=== PATIENT | male | born 1965 | race Caucasian/White ===

== ENCOUNTER 2016-12-27 12:13 | Observation (INO) | payer OTHER ==
--- NOTE | 2016-12-27 14:12 | ER Document Report ---
ED Medical Screen (RME) - General Mode of Arrival: Ambulatory TRAVEL OUTSIDE OF THE [place] IN LAST 30 DAYS: No <IBRAHIMA MALIK - Last Filed: 12/27/16 15:01> <SRIDHAR BALTAZAR - Last Filed: 01/06/17 11:10> - General Chief Complaint: Chest Pain Stated Complaint: CHEST PAIN Time Seen by Provider: 12/27/16 14:03 Notes: Presents today with complaints of chest pain beginning at noon today. Patient states along with this chest pain he began having a headache, confusion, and questionable syncope. Patient states he had a similar episode one week ago with shortness of breath and syncope but was never evaluated medically for this. Patient states with this episode today he developed diaphoresis with the pain radiating in to his neck. Patient denies any nausea, vomiting, diarrhea, or stress test/cardiac catheterization in the past. Patient states he has noticed that he has had mild foot swelling recently. Patient denies nausea, vomiting, diarrhea, or cardiac stress test/cardiac catherization. (IBRAHIMA MALIK) - Related Data Allergies/Adverse Reactions: No Known Allergies Allergy (Verified 12/27/16 12:21) Past Medical History Renal/ Medical History: Denies: Hx Peritoneal Dialysis <IBRAHIMA MALIK - Last Filed: 12/27/16 15:01> Course <IBRAHIMA MALIK - Last Filed: 12/27/16 15:01> - Laboratory Result Diagrams: 12/27/16 14:12 12/27/16 14:12 <SRIDHAR BALTAZAR - Last Filed: 01/06/17 11:10> - Re-evaluation Re-evalutation: 12/27/16 14:13 Patient presents emergency room with chief complaint of chest pain headache and syncope. Patient is a 51-year-old male who does not have a primary care physician and denies any known cardiac history of diabetes high blood pressure or heart problems. He is on no medications has no idea what his cholesterol level is and has never had a stress test or heart catheterization. He said 1 week ago when he was at his computer at work he had acute onset of shortness of breath and passed out at work. He said he woke up for a little funny and then went back to work and did not seek any follow-up treatment for that today he was at [employer] across the street and acute onset of chest pain shortness of breath and again syncopized. This chest pain lasted about 10 minutes and is gone currently he drove himself to the emergency department he states that when he asked him his name and birthdate out thought he had trouble remembering that. He denies any blurred vision double vision weakness on one side of body versus the other and drove and ambulated himself here. He said with this episode he had a severe headache which is slightly improved right now no known family history of aneurysm that he felt short of breath with it became diaphoretic and it radiated into his neck. He denies any nausea vomiting or diarrhea. At this time am ordering a stat CT of his head CT PE study IV placement and laboratory evaluation I called the charge nurse and the back and asked for immediate bed placement for further assessment management. 12/27/16 14:16 I personally performed the services described in the documentation, reviewed and edited the documentation which was dictated to my scribe in my presence, and it accurately records my words and actions. (SRIDHAR BALTAZAR) - Vital Signs Vital signs: Temp Pulse Resp BP Pulse Ox 98 F 78 18 130/84 H 95 12/28/16 10:27 12/28/16 10:27 12/28/16 10:27 12/28/16 10:27 12/28/16 10:27 - Laboratory Laboratory results interpreted by me: 12/27/16 12/27/16 14:12 15:10 Glucose 114 H Total Bilirubin 1.4 H Direct Bilirubin 0.5 H AST 60 H ALT 88 H Urine Blood SMALL H - EKG Interpretation by Me Additional EKG results interpreted by me: 12/27/16 14:15 ekg interpreted by myself revealing sinus rhythm at 95 bpm left axis deviation no acute ST segment elevation or depression (SRIDHAR BALTAZAR) Doctor's Discharge <IBRAHIMA MALIK - Last Filed: 12/27/16 15:01> <SRIDHAR BALTAZAR - Last Filed: 01/06/17 11:10> - Discharge Clinical Impression: Syncope and collapse Chest pain Qualifiers: Chest pain type: unspecified Qualified Code(s): R07.9 - Chest pain, unspecified Headache Qualifiers: Headache type: unspecified Headache chronicity pattern: unspecified pattern Intractability: not intractable Qualified Code(s): R51 - Headache Condition: Stable Disposition: ADMITTED INPATIENT Scribe Documentation - Scribe Written by Scribe:: Liliana Savage, 12/27/2016 1521 acting as scribe for :: Donell <IBRAHIMA MALIK - Last Filed: 12/27/16 15:01>
--- NOTE | 2016-12-27 14:12 | ER Document Report ---
ED Cardiac - General Chief Complaint: Chest Pain Stated Complaint: CHEST PAIN Time Seen by Provider: 12/27/16 14:03 TRAVEL OUTSIDE OF THE [place] IN LAST 30 DAYS: No - Related Data Allergies/Adverse Reactions: No Known Allergies Allergy (Verified 12/27/16 12:21) Past Medical History - Social History Patient has suicidal ideation: No Patient has homicidal ideation: No Renal/ Medical History: Denies: Hx Peritoneal Dialysis Physical Exam - Vital signs Vitals: Temp Pulse Resp BP Pulse Ox 97.6 F 99 22 H 131/81 H 95 12/27/16 12:22 12/27/16 12:22 12/27/16 12:22 12/27/16 12:22 12/27/16 12:22 Course - Vital Signs Vital signs: Temp Pulse Resp BP Pulse Ox 97.6 F 99 22 H 131/81 H 95 12/27/16 12:22 12/27/16 12:22 12/27/16 12:22 12/27/16 12:22 12/27/16 12:22
--- NOTE | 2016-12-27 14:41 | ER Document Report ---
ED General - General Chief Complaint: Chest Pain Stated Complaint: CHEST PAIN Time Seen by Provider: 12/27/16 14:03 Mode of Arrival: Ambulatory Information source: Patient TRAVEL OUTSIDE OF THE [place] IN LAST 30 DAYS: No - HPI Notes: Patient is a 51-year-old white male presents to emergency department with report of syncopal event that occurred 1 week ago when he was laughing sitting at the computer with a colleague had a sensation where he felt lightheaded and then passed out witnessed for just a few seconds and fell forward into the keyboard, then awoke. The patient states she was diaphoretic and had a headache that lasted 30 minutes after the event. There is no observed seizure activity. He had no chest pain associated with that event. He denied any palpitations. Patient reports that today he was in his car and noticed chest pain that lasted approximately 8-9 minutes with a sensation of feeling lightheaded and then had another syncopal event where he was alone, is unsure how long that event lasted but he kept his foot upon the break and the car did not move. This event was also followed by a headache that lasted 30 minutes and resolved. Both events, there was no incontinence or tongue biting. Patient admits to being under significant amount of stress recently due to a new job where he is having to work long hours. He admits to increased caffeine use 1 coli or Mountain Dew daily with 1 monster energy drink and two 5 hour energy per day on average. He drinks rarely perhaps once every 2 weeks, not recently. Patient does have a smoking history. He admits to a 30 pound weight gain in the last 4 months related to the job stress and lack of exercise. Family history significant for cardiac disease. Father at age 64 after having multiple bypass surgeries and MIs. Patient sister of cardiac disease at age 53. Patient has had no previous evaluation of his heart or visit with a regular practitioner. He is on no medications. He has had no cardiac stress test done previously. Patient drove himself to the emergency department after the event today and he was somewhat disoriented having trouble remembering details. He did report brief blurred vision associated with the event, but denied any one- sided numbness or weakness. - Related Data Allergies/Adverse Reactions: No Known Allergies Allergy (Verified 12/27/16 12:21) Past Medical History - General Information source: Patient - Social History Smoking Status: Current Every Day Smoker Cigarette use (# per day): Yes Frequency of alcohol use: Rare Drug Abuse: None Lives with: Alone Family History: CAD Patient has suicidal ideation: No Patient has homicidal ideation: No Renal/ Medical History: Denies: Hx Peritoneal Dialysis Review of Systems - Review of Systems Notes: REVIEW OF SYSTEMS: CONSTITUTIONAL : Denies fever, chills, or sweats. Denies recent illness. EENT: Denies eye, ear, throat, or mouth pain or symptoms. Denies nasal or sinus congestion or discharge. Denies throat, tongue, or mouth swelling or difficulty swallowing. CARDIOVASCULAR: Denies palpitations or racing or irregular heart beat. Denies ankle edema. RESPIRATORY: Denies cough, cold, or chest congestion. Denies shortness of breath, difficulty breathing, or wheezing. GASTROINTESTINAL: Denies abdominal pain or distention. Denies nausea, vomiting , or diarrhea. Denies blood in vomitus, stools, or per rectum. Denies black, tarry stools. Denies constipation. GENITOURINARY: Denies difficulty urinating, painful urination, burning, frequency, blood in urine, or discharge. MUSCULOSKELETAL: Denies back or neck pain or stiffness. Denies joint pain or swelling. SKIN: Denies rash, lesions or sores. HEMATOLOGIC : Denies easy bruising or bleeding. LYMPHATIC: Denies swollen, enlarged glands. NEUROLOGICAL: Denies weakness or paralysis or loss of use of either side. Denies problems with gait or speech. Denies current numbness, or tingling. Denies seizures. PSYCHIATRIC: Denies depression, suicidal ideation, or homicidal ideation. ALL OTHER SYSTEMS REVIEWED AND NEGATIVE. Dictation was performed using [employer] voice recognition software Physical Exam - Vital signs Vitals: Temp Pulse Resp BP Pulse Ox 97.6 F 99 22 H 131/81 H 95 12/27/16 12:22 12/27/16 12:22 12/27/16 12:22 12/27/16 12:22 12/27/16 12:22 - Notes Notes: Male exam PHYSICAL EXAMINATION: GENERAL: Well-appearing, well-nourished and in no acute distress. HEAD: Atraumatic, normocephalic. EYES: Pupils equal round and reactive to light, extraocular movements intact, sclera anicteric, conjunctiva are normal. ENT: Nares patent, oropharynx clear without exudates. Moist mucous membranes. NECK: Normal range of motion, supple without lymphadenopathy. No carotid bruits. No cerebellar ataxia. Normal reflexes. LUNGS: Breath sounds clear to auscultation bilaterally and equal. No wheezes rales or rhonchi. HEART: Regular rate and rhythm without murmurs ABDOMEN: Soft, nontender, nondistended abdomen. No guarding, no rebound. No masses appreciated. Musculoskeletal: Normal range of motion, no pitting or edema. No cyanosis. NEUROLOGICAL: Cranial nerves grossly intact. Normal speech, normal gait. Normal sensory, motor exams. Normal DTRs. Alert oriented x 3. PSYCH: Normal mood, normal affect. SKIN: Warm, Dry, normal turgor, no rashes or lesions noted. Course - Re-evaluation Re-evalutation: 12/27/16 19:36 Patient remained neurologically intact, and vital signs remained stable. CT scan of the chest and head were both negative. There is no evidence for pulmonary embolus, congestive heart failure, acute intracranial hemorrhage or obvious CVA. No anemia or hypoglycemia or electrolyte imbalance. One questions adverse effect of the patient's high caffeine use and stress and cannot exclude possible cardiac arrhythmia. Likewise cannot exclude vascular process and TIA. Also consider cardiac ischemic event with chest pain. Also question stress reaction. Also consider vasovagal reaction related to laughing and reaching back into his back pocket to remove the wallet prior to the event today. This is however somewhat unlikely. discussed with the patient and he was in agreement with further evaluation and care. Discussed with Dr. Irene who agreed to see the patient. Repeat troponin is pending on the patient to further rule out cardiac etiology related to the patient's chest pain. 12/27/16 20:05 - Vital Signs Vital signs: Temp Pulse Resp BP Pulse Ox 97.6 F 99 18 131/81 H 93 12/27/16 12:22 12/27/16 12:22 12/27/16 16:00 12/27/16 12:22 12/27/16 16:00 - Laboratory Result Diagrams: 12/27/16 14:12 12/27/16 14:12 Laboratory results interpreted by me: 12/27/16 12/27/16 14:12 15:10 Glucose 114 H Total Bilirubin 1.4 H Direct Bilirubin 0.5 H AST 60 H ALT 88 H Urine Blood SMALL H - EKG Interpretation by Me EKG shows normal: Sinus rhythm Additional EKG results interpreted by me: 12/27/16 15:12 EKG as interpreted by me showed Normal sinus rhythm heart rate of 95. There is no gross evidence for acute NM or ischemia identified. There is no old EKG available for comparison. 12/27/16 15:14 Critical Care Note - Critical Care Note Total time excluding time spent on procedures (mins): 46 Discharge - Discharge Clinical Impression: Syncope and collapse Chest pain Qualifiers: Chest pain type: unspecified Qualified Code(s): R07.9 - Chest pain, unspecified Headache Qualifiers: Headache type: unspecified Headache chronicity pattern: acute headache Intractability: not intractable Qualified Code(s): R51 - Headache Condition: Stable Disposition: ADMITTED INPATIENT Unit Admitted: [facility]
[2016-12-27 14:55] LABS: ABSOLUTE BASOPHILS # (AUTO) 0.1 10^3/uL (0.0-0.2); ABSOLUTE EOSINOPHILS # (AUTO) 0.3 10^3/uL (0.0-0.6); ABSOLUTE LYMPHOCYTES (AUTO) 3.3 10^3/uL (0.5-4.7); ABSOLUTE MONOCYTES (AUTO) 0.8 10^3/uL (0.1-1.4); ABSOLUTE NEUT (AUTO) 5.3 10^3/uL (1.7-8.2); BASOPHILS % (AUTO) 0.7 % (0-2); EOSINOPHILS % (AUTO) 3.5 % (0-6); HEMOGLOBIN 16.5 g/dL (13.5-17.0); HGB HCT DIFFERENCE 1.5; LYMPHOCYTES % (AUTO) 33.5 % (13-45); MEAN CORPUSCULAR HEMOGLOBIN 31.5 pg (27.0-33.4); MEAN CORPUSCULAR HGB CONC 34.3 g/dL (32.0-36.0); MEAN CORPUSCULAR VOLUME 92 fl (80-97); MONOCYTES % (AUTO) 8.5 % (3-13); RED BLOOD COUNT 5.23 10^6/uL (4.35-5.55); RED CELL DISTRIBUTION WIDTH 12.8 % (11.5-14.0); SEGMENTED NEUTROPHILS % (AUTO) 53.8 % (42-78); WHITE BLOOD COUNT 9.8 10^3/uL (4.0-10.5)
[2016-12-27 15:41] LABS: APPEARANCE,URINE CLEAR; BILIRUBIN,URINE NEGATIVE (NEGATIVE); GLUCOSE, URINE NEGATIVE (NEGATIVE); KETONES,URINE NEGATIVE (NEGATIVE); LEUKOCYTE ESTERASE,URINE NEGATIVE (NEGATIVE); NITRITE,URINE NEGATIVE (NEGATIVE); PROTEIN,URINE NEGATIVE (NEGATIVE); URINE SPECIFIC GRAVITY 1.025; UROBILINOGEN,URINE NEGATIVE mg/dL (<2.0)
[2016-12-27 15:54] LABS: URINE BARBITURATES SCREEN NEGATIVE; URINE METHADONE SCREEN NEGATIVE; URINE OPIATES LOW NEGATIVE; URINE PHENCYCLIDINE SCREEN NEGATIVE
[2016-12-27 16:32] LABS: ALANINE AMINOTRANSFERASE 88 U/L (21-72); ALBUMIN 4.4 g/dL (3.5-5.0); ALKALINE PHOSPHATASE 79 U/L (38-126); ANION GAP 17 (5-19); ASPARTATE AMINO TRANSFERASE 60 U/L (17-59); BILIRUBIN,DIRECT 0.5 mg/dL (0.0-0.4); BILIRUBIN,TOTAL 1.4 mg/dL (0.2-1.3); BLOOD UREA NITROGEN 17 mg/dL (7-20); CARBON DIOXIDE 23 mmol/L (22-30); CHLORIDE 103 mmol/L (98-107); CREATININE RESULT 0.98 mg/dL (0.52-1.25); GLUCOSE 114 mg/dL (75-110); POTASSIUM 4.4 mmol/L (3.6-5.0); TOTAL PROTEIN 7.4 g/dL (6.3-8.2)
[2016-12-27 16:44] LABS: CREATINE KINASE MB 2.49 ng/mL (<4.55)
[2016-12-27 16:47] LABS: TROPONIN I < 0.012 ng/mL
[2016-12-27 17:53] LABS: THYROID STIMULATING HORMONE 1.92 uIU/mL (0.47-4.68)
[2016-12-27] MEDS ORDERED: ACETAMINOPHEN 325 MG TABLET PO PRN (23:24)
[2016-12-27] MEDS ORDERED: NICOTINE 14 MG/24 HR PATCH.TD24 TD PRN (23:24)
[2016-12-27] MEDS ORDERED: MAG HYDROX/AL HYDROX/SIMETH SUSP 30 ML UDCUP PO PRN (23:25)
--- NOTE | 2016-12-27 23:57 | PDOC H&P ---
History of Present Illness Admission Date/PCP: 12/27/16 21:13 PCP None Patient complains of: chest pain, syncope History of Present Illness: ANISA BEAN is a 51 year old morbidly obese male, half pack a day smoker, admittedly under significant stress in his new job, significant caffeine user, with underlying mild depression, without suicidal or homicidal ideation, mild occasional heartburn, and with a positive family history of coronary artery disease in the person of his father, who presents to the emergency room for evaluation of above complaints. Patient has been discussed with emergency room physician who evaluated the patient. One week ago, when sitting at his computer, laughing not overly vigorously with a colleague, developed a lightheaded sensation and then had a witnessed several second syncopal episode, waking up with his head on the keyboard. No observed seizure activity. No incontinence or tongue biting. No palpitations or chest pain. Did develop mild diaphoresis, along with a 30 minute headache post-event. Today, while sitting in his car, he developed substernal chest discomfort lasting approximately 8-9 minutes, with spontaneous resolution. Associated sensation of lightheadedness. He put the foot on the brake of the car and had another syncopal episode. Uncertain the exact length of today's event, but the car did not move. This was also followed by approximately a 30 minute episode of headache that spontaneously resolved. Again, no tongue biting or incontinence. Patient drove himself to the emergency department. [place] somewhat disoriented, having trouble remembering details, along with brief blurred vision associated with the above second event, but denies any lateralizing numbness or weakness. No history of seizure stroke TIA or mini stroke. Half pack a day smoker. Alcohol intake about once every 2 weeks, but reportedly not much even then. Marijuana use. 1 carbonated beverage daily containing caffeine. 1 monster energy drink per day, along with 2 5 hour energy drinks also. Occasional [id number] Advil or ibuprofen, but none for the past 2 weeks. 30 pound weight gain in the last 4 months due to job stress and lack of exercise. No underlying personal cardiac history. Distant history of a negative workup for "flight tests." No previous myocardial infarction, problems with hypertension, or congestive heart failure. No history of pulmonary embolus or DVT. No recent long trip with prolonged inactivity, or unusual lower extremity swelling or tenderness. Currently resting quietly. Denies pain. Hungry. Wants a cigarette. Laboratory results are listed in [employer] and are reviewed. X-ray summary results are listed below, with full report(s) reviewed. . EKG reviewed. No prior EKG available for comparison. Social history/personal habits: . One child, 15-year-old daughter. 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 Personal habits as noted above. No known drug allergies. Home medications none REVIEW OF SYSTEMS: Constitutional: No fever or chills. Eyes: Wears glasses. ENT: No swallowing problems or complaints. No hearing difficulty. Pulmonary: No current complaints. Cardiovascular: See history and present illness. Gastrointestinal: No current complaints, including nausea or vomiting. Skin: No current complaints, including rashes. Hematologic: No easy bruising. Neurologic: No current complaints, including numbness or tingling. Musculoskeletal: Occasional mild back discomfort, but no specific diagnosis of arthritis; states he has been told a number of years ago that x-rays of the spine revealed "arthritic changes." Psychiatric: Mild depression; denies suicidal or homicidal ideation. Endocrine: No current complaints, including polyuria. Genitourinary: No current complaints, including dysuria. PHYSICAL EXAMINATION: 6 feet tall. 136.1 kg. BMI 40.7 kg/m. Blood pressure 117/78.Pulse of 80. Respirations are 23 and unlabored. 95% saturation on room air. Temperature 97.6. Obese but also somewhat stocky otherwise well-developed male appearing perhaps a bit younger than his stated age. Pleasant awake alert and cooperative. Somewhat anxious gentleman, although no seda agitation. Skin is warm and dry. No grossly obvious evidence of rash in areas of skin examined. No subcutaneous nodules palpated. ENT: Hearing grossly normal to normal conversation. Tongue midline on protrusion pink and slightly tacky. Eyes: No scleral icterus. Pupils equal and reactive to light at 4 mm. [place] conjunctivae. Neck is supple and nontender to gentle active range of motion and palpation. Midline trachea. No palpable thyroid nodule mass enlargement or tenderness. Lymphatic: No palpable cervical or clavicular nodes. Neck and lymphatic exams limited by patient body habitus. Psychiatric: Reasonable insight into acute and chronic medical issues. Oriented to time location and why here. Lungs: Auscultation reveals clear and equal breath sounds bilaterally. No use of accessory respiratory muscles. Cardiovascular: Heart regular rate and rhythm, without gallop murmur or rub. No carotid or abdominal aortic bruits. No ankle edema. Abdomen:soft somewhat obese nontender with positive bowel sounds. Unable to adequately evaluate abdomen for masses or organomegaly due to body habitus. Compression of neither his upper abdomen or sternum reproduces his previously noted chest discomfort Extremities: Ankles and calves are warm and dry. No calf tenderness to compression. No grossly obvious visual evidence of calf swelling. Gentle manipulation of lower extremities fails to reveal any obvious evidence of injury or instability to knees hips or ankles. Neurologic: Moves all 4 extremities grossly normally. Moves from a standing to a seated to a supine position without undue difficulty. Patellar reflexes absent. Dorsiflexion and plantarflexion of feet 5 / 5 and symmetric. Past Medical History Cardiac Medical History: Denies: Congestive Heart Failure, DVT, Myocardial Infarction, Hyperlipidema, Hypertension, Pulmonary Embolism Pulmonary Medical History: Denies: Asthma, Chronic Obstructive Pulmonary Disease (COPD), Sleep Apnea EENT Medical History: Reports: Eyes - Reading glasses Denies: Ears, Throat Neurological Medical History: Denies: Hemorrhagic CVA, Ischemic CVA, Seizures Endocrine Medical History: Denies: Diabetes Mellitus Type 1, Diabetes Mellitus Type 2, Hyperthyroidism, Hypothyroidism Renal/ Medical History: Reports: None GI Medical History: Reports: Other - Occasional heartburn. Denies: Cirrhosis, Hepatitis, Peptic Ulcer Disease Musculoskeltal Medical History: Reports: Arthritis - Back x-rays revealing "arthritic changes" Skin Medical History: Reports: None Psychiatric Medical History: Reports: Depression, Substance Abuse - Marijuana and fairly significant caffeine use., Tobacco Dependency Denies: Alcohol Dependency, General Anxiety Disorder Hematology: Reports: None Infectious Medical History: Denies: Clostridium Difficile, Hepatitis B, Hepatitis C, Methicillin- Resistant Staph Aureus Past Surgical History Past Surgical History: Reports: Other - Percutaneous drainage of diverticular abscess Social History Information Source: Patient, Emergency Med Personnel, [facility] Records Lives with: Alone Smoking Status: Current Every Day Smoker Frequency of Alcohol Use: Occasional Drugs: Marijuana, Other - Significant caffeine use. - Advance Directive Resuscitation Status: Full Code Surrogate healthcare decision maker:: Uncertain Family History Family History: CAD Parental Family History Reviewed: Yes - Mother after stroke. Father of heart trouble. Children Family History Reviewed: Yes - 15-year-old daughter healthy. Sibling(s) Family History Reviewed.: Yes - 2 sisters with cancer, one secondary to same Medication/Allergy Home Medications: Aspirin [Ecotrin 81 mg EC Tablet] 81 mg PO DAILY #30 tabec 12/28/16 Atorvastatin Calcium [Lipitor 40 mg Tablet] 40 mg PO QHS #30 tablet 12/28/16 Allergies/Adverse Reactions: No Known Allergies Allergy (Verified 12/27/16 12:21) Physical Exam Vital Signs: Temp Pulse Resp BP Pulse Ox 97.6 F 99 23 H 117/78 95 12/27/16 12:22 12/27/16 12:22 12/27/16 22:01 12/27/16 22:01 12/27/16 22:01 Results Impressions: Chest/Abdomen CTA 12/27/16 14:13 IMPRESSION: 1. There is no evidence of pulmonary emboli. 2. There is fatty infiltration of the liver. Head CT 12/27/16 14:13 IMPRESSION: 1. Normal-appearing brain. 2. Maxillary and ethmoid sinusitis. Assessment & Plan - Diagnosis (1) Caffeine dependence Is this a current diagnosis for this admission?: Yes (2) Chest pain Qualifiers: Chest pain type: unspecified Qualified Code(s): R07.9 - Chest pain, unspecified Is this a current diagnosis for this admission?: YesPlan: Patient will be placed in observation bed under chest pain protocol. Patient understands to notify staff should chest pain recur. Serial troponin. Repeat EKG. lipid panel. I have strongly encouraged patient not to get out of bed without notifying staff , to avoid a fall with injury. Knee high SCDs for DVT prophylaxis, Along with subcutaneous Lovenox. Impression and plans were discussed with patient, who concurs. Time spent in evaluation and management of patient: 62 minutes. (3) Elevated LFTs Is this a current diagnosis for this admission?: YesPlan: Denies any known underlying biliary disease. Fatty liver changes on CT scan. Repeat chemistry. (4) Marijuana use Is this a current diagnosis for this admission?: Yes (5) Morbid obesity Qualifiers: Obesity type: unspecified obesity type Qualified Code(s): E66.01 - Morbid (severe) obesity due to excess calories Is this a current diagnosis for this admission?: YesPlan: Dietary consult. (6) Stress at work Is this a current diagnosis for this admission?: Yes (7) Syncope and collapse Is this a current diagnosis for this admission?: YesPlan: Orthostatic vital signs every 4 hours while awake, starting in morning. Strongly encouraged patient not to get out of bed without notifying staff to avoid a fall with injury. (8) Family history of early CAD Is this a current diagnosis for this admission?: Yes (9) Tobacco dependency Is this a current diagnosis for this admission?: YesPlan: As needed nicotine patch.
[2016-12-28 00:09] LABS: ADD ON TESTING BLD IN LAB ACKNOWLEDGE
[2016-12-28 00:21] LABS: ALCOHOL < 10 mg/dL (NONE DETECTED)
[2016-12-28] MEDS ORDERED: CALCIUM GLUCONATE 1000 MG/10 ML INJ IV ONE (00:47)
[2016-12-28] MEDS ORDERED: ASPIRIN 81 MG TABLET, ENT COATED PO ONE (01:00)
[2016-12-28 07:05] LABS: ALANINE AMINOTRANSFERASE 87 U/L (21-72); ALKALINE PHOSPHATASE 78 U/L (38-126); ASPARTATE AMINO TRANSFERASE 59 U/L (17-59); BILIRUBIN,DIRECT 0.5 mg/dL (0.0-0.4); BILIRUBIN,TOTAL 1.1 mg/dL (0.2-1.3); CHOLESTEROL 172.29 mg/dL (0-200); Direct HDL 28 mg/dL (>40); TOTAL PROTEIN 6.9 g/dL (6.3-8.2); TRIGLYCERIDES 292 mg/dL (<150)
[2016-12-28 07:17] LABS: DIRECT LDL 105 mg/dL (<100)
[2016-12-28 07:24] LABS: VLDL CHOLESTEROL 58.4 mg/dL (10-31)
[2016-12-28] MEDS ORDERED: ASPIRIN 81 MG TABLET, ENT COATED PO SCH (10:00)
[2016-12-28] MEDS ORDERED: ENOXAPARIN SODIUM INJ 40 MG/0.4 ML DISP.SYRIN SUBCUT SCH (10:00)
[2016-12-28 10:33] VITALS: BP 130/84
--- NOTE | 2016-12-28 13:25 | PDOC DISCHARGE SUMMARY ---
General - Admit/Disc Date/PCP Admission Date/Primary Care Provider: 12/27/16 23:25 Will be referred to the primary care provider transportation engineering technician the day the patient was admitted Discharge Date: 12/28/16 - Discharge Diagnosis (1) Chest pain Is this a current diagnosis for this admission?: Yes (2) Pre-syncope Is this a current diagnosis for this admission?: Yes (3) Caffeine dependence Is this a current diagnosis for this admission?: Yes (4) Elevated LFTs Is this a current diagnosis for this admission?: Yes (5) Marijuana use Is this a current diagnosis for this admission?: Yes (6) Morbid obesity Is this a current diagnosis for this admission?: Yes (7) Stress at work Is this a current diagnosis for this admission?: Yes (8) Family history of early CAD Is this a current diagnosis for this admission?: Yes (9) Tobacco dependency Is this a current diagnosis for this admission?: Yes - Additional Information Resuscitation Status: Full Code Discharge Diet: As Tolerated, Cardiac Discharge Activity: Activity As Tolerated - Patient was provided a note to return to work on Friday, Balance Activity w/Rest, Other Home Medications: Aspirin [Ecotrin 81 mg EC Tablet] 81 mg PO DAILY #30 tabec 12/28/16 Atorvastatin Calcium [Lipitor 40 mg Tablet] 40 mg PO QHS #30 tablet 12/28/16 History of Present Illness Patient complains of: Almost passing out, chest pain History of Present Illness: ANISA BEAN is a 51 year old morbidly obese male, half pack a day smoker, admittedly under significant stress in his new job, significant caffeine user, with underlying mild depression, without suicidal or homicidal ideation, mild occasional heartburn, and with a positive family history of coronary artery disease and the person of his father, who presents to the emergency room for evaluation of above complaints. One week ago, when sitting at his computer, laughing not overly vigorously with a colleague, developed a lightheaded sensation and then had a witnessed several second syncopal episode, waking up with his head on the keyboard. No observed seizure activity. No incontinence or tongue biting. No palpitations or chest pain. Did develop mild diaphoresis, along with a 30 minute headache postevent. Denies loss of consciousness. Today, while sitting in his car at a fast food drive-through, he developed substernal chest discomfort lasting approximately 8-9 minutes, with spontaneous resolution. Associated sensation of lightheadedness. He put the foot on the brake of the car and had another syncopal episode. Uncertain the exact length of today's event, but the car did not move. This was also followed by approximately a 30 minute episode of headache that spontaneously resolved. Patient drove himself to the emergency department. Kane somewhat disoriented, having trouble remembering details, along with brief blurred vision associated with the above second event, but denies any lateralizing numbness or weakness. No history of seizure stroke TIA or mini stroke. Half pack a day smoker. Alcohol intake about once every 2 weeks, but reportedly not much then. Marijuana use. 1 carbonated beverage daily containing caffeine. 1 monster energy drink per day, along with 2 5 hour energy drinks also. Occasional [id number] Advil or ibuprofen, but none for the past 2 weeks. 30 pound weight gain in the last 4 months due to job stress and lack of exercise. The patient gives a significant history of being unable to sleep through the night, extremely loud snoring, excessive daytime sleepiness. No underlying personal cardiac history. Distant history of a negative workup for "flight tests." No previous myocardial infarction, problems with hypertension, or congestive heart failure. No history of pulmonary embolus or DVT. No recent long trip with prolonged inactivity, or unusual lower extremity swelling or tenderness. Currently resting quietly. Denies pain. Hungry. Wants a cigarette. Hospital Course Hospital Course: The patient was admitted to continuous telemetry unit. Serial cardiac enzymes were obtained all of which were nonsuggestive. The patient had no EKG changes and no events on the vehicle monitor technician. The patient had no further replication of symptoms. Went into detail with the patient discussing his lifestyle especially his excessive caffeine consumption and significant evidence of sleep apnea. I spent 3 minutes discussing smoking cessation education. The patient declines any pharmacological intervention at this time. During the patient's stay he was given a nicotine patch. Discussed the case with Dr. Dias and patient will be referred to his office for Cardiolite stress test, monitor, and sleep study. Physical Exam Vital Signs: Temp Pulse Resp BP Pulse Ox 98 F 78 18 130/84 H 95 12/28/16 10:27 12/28/16 10:27 12/28/16 10:27 12/28/16 10:27 12/28/16 10:27 Intake & Output 12/26/16 12/27/16 12/28/16 23:59 23:59 23:59 Intake Total 256 Balance 256 Weight 136 kg General appearance: PRESENT: no acute distress, cooperative, well-developed, well-nourished Head exam: PRESENT: atraumatic, normocephalic Eye exam: PRESENT: conjunctiva pink, EOMI, PERRLA. ABSENT: scleral icterus Ear exam: PRESENT: normal external ear exam Mouth exam: PRESENT: moist, tongue midline Neck exam: ABSENT: carotid bruit, JVD, lymphadenopathy, thyromegaly Respiratory exam: PRESENT: clear to auscultation jez, symmetrical, unlabored. ABSENT: rales, rhonchi, tachypnea, wheezes Cardiovascular exam: PRESENT: RRR. ABSENT: diastolic murmur, rubs, systolic murmur Pulses: PRESENT: normal dorsalis pedis pul Vascular exam: PRESENT: normal capillary refill GI/Abdominal exam: PRESENT: normal bowel sounds, soft. ABSENT: distended, guarding, mass, organolmegaly, rebound, tenderness Rectal exam: PRESENT: deferred Extremities exam: PRESENT: full ROM. ABSENT: calf tenderness, clubbing, pedal edema Neurological exam: PRESENT: alert, awake, oriented to person, oriented to place , oriented to time, oriented to situation, CN II-XII grossly intact. ABSENT: motor sensory deficit Psychiatric exam: PRESENT: appropriate affect, normal mood. ABSENT: homicidal ideation, suicidal ideation Skin exam: PRESENT: dry, intact, warm. ABSENT: cyanosis, rash Results Laboratory Results: Labs- Last Values WBC 9.8 10^3/uL (4.0-10.5) 12/27/16 14:12 RBC 5.23 10^6/uL (4.35-5.55) 12/27/16 14:12 Hgb 16.5 g/dL (13.5-17.0) 12/27/16 14:12 Hct 48.0 % (37.9-51.0) 12/27/16 14:12 MCV 92 fl (80-97) 12/27/16 14:12 MCH 31.5 pg (27.0-33.4) 12/27/16 14:12 MCHC 34.3 g/dL (32.0-36.0) 12/27/16 14:12 RDW 12.8 % (11.5-14.0) 12/27/16 14:12 Plt Count 228 10^3/uL (150-450) 12/27/16 14:12 Seg Neutrophils % 53.8 % (42-78) 12/27/16 14:12 Lymphocytes % 33.5 % (13-45) 12/27/16 14:12 Monocytes % 8.5 % (3-13) 12/27/16 14:12 Eosinophils % 3.5 % (0-6) 12/27/16 14:12 Basophils % 0.7 % (0-2) 12/27/16 14:12 Absolute Neutrophils 5.3 10^3/uL (1.7-8.2) 12/27/16 14:12 Absolute Lymphocytes 3.3 10^3/uL (0.5-4.7) 12/27/16 14:12 Absolute Monocytes 0.8 10^3/uL (0.1-1.4) 12/27/16 14:12 Absolute Eosinophils 0.3 10^3/uL (0.0-0.6) 12/27/16 14:12 Absolute Basophils 0.1 10^3/uL (0.0-0.2) 12/27/16 14:12 Sodium 143.0 mmol/L (137-145) 12/27/16 14:12 Potassium 4.4 mmol/L (3.6-5.0) 12/27/16 14:12 Chloride 103 mmol/L (98-107) 12/27/16 14:12 Carbon Dioxide 23 mmol/L (22-30) 12/27/16 14:12 Anion Gap 17 (5-19) 12/27/16 14:12 BUN 17 mg/dL (7-20) 12/27/16 14:12 Creatinine 0.98 mg/dL (0.52-1.25) 12/27/16 14:12 Est GFR ( Amer) > 60 (>60) 12/27/16 14:12 Est GFR (Non-Af Amer) > 60 (>60) 12/27/16 14:12 Glucose 114 mg/dL (75-110) H 12/27/16 14:12 Calcium 10.0 mg/dL (8.4-10.2) 12/27/16 14:12 Magnesium 2.2 mg/dL (1.6-2.3) 12/27/16 14:12 Total Bilirubin 1.1 mg/dL (0.2-1.3) 12/28/16 06:26 Direct Bilirubin 0.5 mg/dL (0.0-0.4) H 12/28/16 06:26 Indirect Bilirubin Not Reportable 12/28/16 06:26 Neonat Total Bilirubin Not Reportable 12/28/16 06:26 AST 59 U/L (17-59) 12/28/16 06:26 ALT 87 U/L (21-72) H 12/28/16 06:26 Alkaline Phosphatase 78 U/L (38-126) 12/28/16 06:26 CK-MB (CK-2) 2.49 ng/mL (<4.55) 12/27/16 14:12 Troponin I < 0.012 ng/mL 12/28/16 06:26 NT-Pro-B Natriuret Pep 43 pg/mL (5-900) 12/27/16 14:12 Total Protein 6.9 g/dL (6.3-8.2) 12/28/16 06:26 Albumin 4.0 g/dL (3.5-5.0) 12/28/16 06:26 Triglycerides 292 mg/dL (<150) H 12/28/16 06:26 Cholesterol 172.29 mg/dL (0-200) 12/28/16 06:26 LDL Cholesterol Direct 105 mg/dL (<100) H 12/28/16 06:26 VLDL Cholesterol 58.4 mg/dL (10-31) H 12/28/16 06:26 HDL Cholesterol 28 mg/dL (>40) L 12/28/16 06:26 TSH 1.92 uIU/mL (0.47-4.68) 12/27/16 14:12 Free T4 1.39 ng/dL (0.78-2.19) 12/27/16 14:12 Urine Color YELLOW 12/27/16 15:10 Urine Appearance CLEAR 12/27/16 15:10 Urine pH 5.0 (5.0-9.0) 12/27/16 15:10 Ur Specific [place] 1.025 12/27/16 15:10 Urine Protein NEGATIVE mg/dL (NEGATIVE) 12/27/16 15:10 Urine Glucose (UA) NEGATIVE mg/dL (NEGATIVE) 12/27/16 15:10 Urine Ketones NEGATIVE mg/dL (NEGATIVE) 12/27/16 15:10 Urine Blood SMALL (NEGATIVE) H 12/27/16 15:10 Urine Nitrite NEGATIVE (NEGATIVE) 12/27/16 15:10 Urine Bilirubin NEGATIVE (NEGATIVE) 12/27/16 15:10 Urine Urobilinogen NEGATIVE mg/dL (<2.0) 12/27/16 15:10 Ur Leukocyte Esterase NEGATIVE (NEGATIVE) 12/27/16 15:10 Urine WBC (Auto) 1 /HPF 12/27/16 15:10 Urine RBC (Auto) 1 /HPF 12/27/16 15:10 Squamous Epi Cells Auto <1 /HPF 12/27/16 15:10 Urine Mucus (Auto) RARE /LPF 12/27/16 15:10 Urine Ascorbic Acid NEGATIVE (NEGATIVE) 12/27/16 15:10 Urine Opiates Screen NEGATIVE 12/27/16 15:10 Urine Methadone Screen NEGATIVE 12/27/16 15:10 Ur Barbiturates Screen NEGATIVE 12/27/16 15:10 Ur Phencyclidine Scrn NEGATIVE 12/27/16 15:10 Ur Amphetamines Screen NEGATIVE 12/27/16 15:10 U Benzodiazepines Scrn NEGATIVE 12/27/16 15:10 Urine Cocaine Screen NEGATIVE 12/27/16 15:10 U Marijuana (THC) Screen UNCONFIRMED POSITIVE 12/27/16 15:10 Serum Alcohol < 10 mg/dL (NONE DETECTED) 12/27/16 19:02 Impressions: Chest/Abdomen CTA 12/27/16 14:13 IMPRESSION: 1. There is no evidence of pulmonary emboli. 2. There is fatty infiltration of the liver. Head CT 12/27/16 14:13 IMPRESSION: 1. Normal-appearing brain. 2. Maxillary and ethmoid sinusitis. Qualifiers PATEINT BEING DISCHARGED WITH ANY OF THE FOLLOWING DIAGNOSIS?: No Plan Discharge Plan: The patient will be referred to the primary care provider who was transportation engineering technician the patient was admitted for hospital follow-up and to establish primary care. The patient has been referred to the mail inserter that is transportation engineering technician the day the patient was admitted for outpatient follow-up Time Spent: Greater than 30 Minutes - on this visit including assessment, plan, physical examination, family meeting, and specialty collaboration, and patient education is 35 minutes.
--- NOTE | 2016-12-28 17:49 | EKG REPORT ---
SEVERITY:- OTHERWISE NORMAL ECG - SINUS RHYTHM LEFT AXIS DEVIATION : Confirmed by: Chrissie Olivera MD 28-Dec-2016 17:48:48
--- NOTE | 2016-12-28 17:49 | EKG REPORT ---
SEVERITY:- OTHERWISE NORMAL ECG - SINUS RHYTHM LEFT AXIS DEVIATION : Confirmed by: Chrissie Olivera MD 28-Dec-2016 17:48:54
== END 2016-12-28 10:58 | disposition home or self-care (01) ==
LOC: ER 12:13 → EH 21:13 → UNDOADMIN 21:13 → INTOOBSV 23:25 → 3N 23:25 → EH 23:35 → 3N 23:35
PROVIDERS: ADMIT Family Medicine; ATTEND Family Medicine
PROC: HZ31ZZZ Individual Counseling for Substance Abuse Treatment, Behavioral (ICD-10-PCS; principal; 2016-12-28)
DX: R55 Syncope and collapse (principal); R07.9 Chest pain, unspecified; F15.20 Other stimulant dependence, uncomplicated; R79.89 Other specified abnormal findings of blood chemistry; F12.90 Cannabis use, unspecified, uncomplicated; E66.01 Morbid (severe) obesity due to excess calories; Z56.3 Stressful work schedule; Z82.49 Family history of ischemic heart disease and other diseases of the circulatory system; F17.210 Nicotine dependence, cigarettes, uncomplicated; F32.9 Major depressive disorder, single episode, unspecified; R51 Headache; R61 Generalized hyperhidrosis; H53.8 Other visual disturbances; R41.3 Other amnesia; R41.0 Disorientation, unspecified; J32.0 Chronic maxillary sinusitis; G47.30 Sleep apnea, unspecified; J32.2 Chronic ethmoidal sinusitis; K76.0 Fatty (change of) liver, not elsewhere classified; Z79.899 Other long term (current) drug therapy; Z79.82 Long term (current) use of aspirin; Z68.41 Body mass index [BMI] 40.0-44.9, adult; Z82.3 Family history of stroke; Z68.43 Body mass index [BMI] 50.0-59.9, adult
CPT/HCPCS: 93005 ×2; 99291; 36415 ×2; 84439; 82553; 80307 ×2; 83735; 84443; 85025; 80076; 80053; 81001; 84484 ×2; 80061; 83880; 70450; 71275; 93010 ×2; 99406; G0378 ×2; J3490

== ENCOUNTER 2020-01-31 17:28 | Emergency (ER) | payer OTHER ==
[2020-01-31] MEDS ORDERED: CYCLOBENZAPRINE HCL 10 MG TABLET PO ONE (18:06)
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
[2020-01-31 18:54] LABS: ABSOLUTE BASOPHILS # (AUTO) 0.1 10^3/uL (0.0-0.2); ABSOLUTE EOSINOPHILS # (AUTO) 0.2 10^3/uL (0.0-0.6); ABSOLUTE NEUT (AUTO) 8.7 10^3/uL (1.7-8.2); BASOPHILS % (AUTO) 0.6 % (0-2); EOSINOPHILS % (AUTO) 1.2 % (0-6); HEMATOCRIT 46.8 % (37.9-51.0); HEMOGLOBIN 15.9 g/dL (13.5-17.0); LYMPHOCYTES % (AUTO) 23.4 % (13-45); MEAN CORPUSCULAR HEMOGLOBIN 31.5 pg (27.0-33.4); MEAN CORPUSCULAR VOLUME 93 fl (80-97); MONOCYTES % (AUTO) 7.8 % (3-13); PLATELET COUNT 236 10^3/uL (150-450); RED BLOOD COUNT 5.05 10^6/uL (4.35-5.55); RED CELL DISTRIBUTION WIDTH 13.1 % (11.5-14.0); TOTAL CELLS COUNTED % (AUTO) 100 %
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
[2020-01-31 19:11] LABS: ALBUMIN 4.8 g/dL (3.5-5.0); ALKALINE PHOSPHATASE 92 U/L (38-126); ANION GAP 9 (5-19); ASPARTATE AMINO TRANSFERASE 43 U/L (17-59); BILIRUBIN,DIRECT 0.2 mg/dL (0.0-0.4); BILIRUBIN,TOTAL 1.7 mg/dL (0.2-1.3); BLOOD UREA NITROGEN 16 mg/dL (7-20); CALCIUM 9.5 mg/dL (8.4-10.2); CARBON DIOXIDE 25 mmol/L (22-30); CHLORIDE 105 mmol/L (98-107); GLUCOSE 100 mg/dL (75-110); POTASSIUM 4.1 mmol/L (3.6-5.0); TOTAL PROTEIN 8.3 g/dL (6.3-8.2)
[2020-01-31 20:20] LABS: APPEARANCE,URINE SLIGHTLY-CLOUDY; BILIRUBIN,URINE NEGATIVE (NEGATIVE); COLOR,URINE AMBER; GLUCOSE, URINE NEGATIVE (NEGATIVE); KETONES,URINE 20 mg/dL (NEGATIVE); LEUKOCYTE ESTERASE,URINE TRACE (NEGATIVE); NITRITE,URINE NEGATIVE (NEGATIVE); PROTEIN,URINE 30 mg/dL (NEGATIVE); URINE SPECIFIC GRAVITY 1.028
--- NOTE | 2020-01-31 20:44 | RADIOLOGY REPORT (SQ) ---
CT CERVICAL SPINE WITHOUT IV CONTRAST HISTORY: Neck pain. COMPARISON: None. TECHNIQUE: CT scan of the cervical spine was performed without IV contrast. This exam was performed according to our departmental dose-optimization program, which includes automated exposure control, adjustment of the mA and/or kV according to patient size and/or use of iterative reconstruction technique. FINDINGS: No acute cervical fracture or prevertebral soft tissue swelling is seen. There is straightening of the normal cervical lordosis, which may be due to cervical collar, muscle spasm, or patient positioning. The disc spaces and facet joints are grossly preserved. The spinal canal is poorly visualized due to artifact. IMPRESSION: No acute fracture or subluxation of the cervical spine.
--- NOTE | 2020-01-31 20:48 | RADIOLOGY REPORT (SQ) ---
CT ABDOMEN PELVIS WITH IV CONTRAST HISTORY: Abdominal pain. COMPARISON: None. TECHNIQUE: CT scan of the abdomen and pelvis was performed with IV contrast. This exam was performed according to our departmental dose-optimization program, which includes automated exposure control, adjustment of the mA and/or kV according to patient size and/or use of iterative reconstruction technique. FINDINGS: The lung bases are clear. No pleural or pericardial effusions. There is no hiatal hernia. There is diffuse hepatic steatosis. The spleen, pancreas, gallbladder, adrenal glands, kidneys, and pelvic organs are unremarkable. No evidence of urinary stones or hydronephrosis. There are scattered colonic diverticula without surrounding inflammatory changes. The appendix is unremarkable. The stomach and small bowel are also unremarkable without evidence of obstruction or inflammation. No intraperitoneal free fluid or free air is seen. The aorta is normal in caliber. No acute bony findings are seen. No abnormal body wall hernia. IMPRESSION: No acute abdominal or pelvic findings.
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
[2020-01-31] MEDS ORDERED: OXYCODONE-ACETAMINOPHEN 5-325 MG TABLET PO ONE (21:22)
[2020-01-31] MEDS ORDERED: ONDANSETRON HCL INJ/PF 4 MG/2 ML SDV IV ONE (21:22)
[2020-01-31] MEDS ORDERED: HYDROCODONE/ACETAMINOPHEN 5-325 MG (6 TAB/ER DISP) PO PRN (21:33)
[2020-01-31 22:06] VITALS: BP 126/75
== END 2020-01-31 21:58 | disposition home or self-care (01) ==
LOC: ER 17:28
DX: M54.2 Cervicalgia (principal); M54.6 Pain in thoracic spine; M25.512 Pain in left shoulder; M54.9 Dorsalgia, unspecified
CPT/HCPCS: 99284; 96374; 36415; 85025; 80053; 81001; 73030; 72070; 72125; 74177; J2405